=== PATIENT | female | born 1985 | race Two or more races ===

== ENCOUNTER → 2024-03-08 | Outpatient (CLI) | payer BC, SELFPAY ==
[2024-03-08 12:03] LABS: Collection Type, Urine Clean Catch
[2024-03-08 12:33] LABS: Bilirubin,Urine Negative (Negative); Blood,Urine Negative (Negative); Clarity,Urine Clear (Clear/Hazy); Color,Urine Yellow (Lt Yel-Yel); Culture Indicated,Urine Not Indicated; Glucose, Urine Negative (Negative); Ketones,Urine Negative (Negative); Leukocyte Esterase,Urine Negative (Negative); Nitrite,Urine Negative (Negative); Protein,Urine Trace (Neg - Trace); RBC,Urine 3 /hpf (0-3); Specific Gravity,Urine 1.031 (1.001-1.035); Squamous Epithelial Cell,Urine 5 /hpf (0-5); Urobilinogen,Urine Negative mg/dL (0.0-1.0); WBC,Urine 1 /hpf (0-5)
[2024-03-08 12:37] LABS: Glucose Estimated Average 97 mg/dL (80-131)
[2024-03-08 12:39] LABS: Basophils # (Auto) 0.1 Thou/mm3 (0.0-0.2); Basophils % (Auto) 1 % (0-2.5); Eosinophils # (Auto) 0.1 Thou/mm3 (0.0-0.5); Eosinophils % (Auto) 2 % (0-10); Hematocrit 40.9 % (36.0-46.0); Hemoglobin 14.4 g/dL (12.0-16.0); Immature Granulocytes % (Auto) 0 % (0-0); Immature Granulocytes Auto 0.01 Thou/mm3 (0.00-0.00); Lymphocytes # (Auto) 2.5 Thou/mm3 (1.0-4.8); Lymphocytes % (Auto) 37 % (10-50); Mean Corpuscular HGB Conc 35.2 g/dl (31.0-37.0); Mean Corpuscular Hemoglobin 31.9 pg (25.0-35.0); Mean Corpuscular Volume 91 fL (80-100); Monocytes # (Auto) 0.4 Thou/mm3 (0.0-0.8); Monocytes % (Auto) 6 % (0-12); Neutrophils # (Auto) 3.6 Thou/mm3 (1.8-7.7); Neutrophils % (Auto) 53 % (37-80); Nucleated Red Blood Cell % 0 /100 WBC (0); Parathyroid Hormone Intact 60.1 pg/ml (18.5-88.0); Platelet Count 284 Thou/mm3 (140-440); RDW Standard Deviation 45.4 fL (36.4-46.3); Red Blood Count 4.52 Miln/mm3 (4.00-5.20); White Blood Count 6.7 Thou/mm3 (3.6-11.0)
[2024-03-08 12:53] LABS: Alanine Aminotransferase 26 U/L (10-49); Albumin, Serum 5.2 gm/dL (3.5-5.0); Albumin/Globulin Ratio 2.1 (1.2-2.2); Alkaline Phosphatase 55 U/L (46-116); Anion Gap 10 (7-16); Aspartate Amino Transferase 21 U/L (0-34); BUN/Creatinine Ratio 18 Ratio (12-20); Bilirubin,Total 0.7 mg/dL (0.3-1.2); Blood Urea Nitrogen 14 mg/dL (9-23); Calcium 9.4 mg/dL (8.3-10.6); Calcium (Corrected) 9.4 mg/dL (8.5-10.1); Carbon Dioxide 25.1 mMol/L (20.0-31.0); Cardiac Risk Estimate 4.8 RATIO (3.7-5.6); Chloride 103 mMol/L (98-107); Cholesterol 263 mg/dL (132-200); Creatinine (Component) 0.8 mg/dL (0.6-1.3); Free T4 (Free Thyroxine) 0.98 ng/dL (0.89-1.76); Globulin 2.5 gm/dL (2.3-3.5); Glucose 87 mg/dL (74-106); HDL Cholesterol 55 mg/dL (40-60); LDL Cholesterol,Calculated 181 mg/dL (0-130); Osmolality,Calculated 275 (275-295); Potassium 4.1 mMol/L (3.4-5.1); Sodium 138 mMol/L (136-145); Thyroid Stimulating Hormone 50.02 uIU/mL (0.55-4.78); Total Protein 7.7 gm/dL (5.7-8.2); Triglycerides 135 mg/dL (30-150); eGFR > 60 See Note
[2024-03-08 12:55] LABS: Ferritin 44 ng/mL (7.3-270.7); Total Iron Binding Capacity 356 mcg/dL (250-425)
[2024-03-08 13:05] LABS: Iron 125 mcg/dL (50-170)
[2024-03-09 18:44] LABS: Folate > 24.00 ng/mL (>5.38); Vitamin B12 779 pg/mL (211-911)
[2024-03-14 06:38] LABS: Vitamin B1 (Thiamine)* 13 nmol/L (8-30); Vitamin B6, Plasma* 81.7 ng/mL (2.1-21.7)
[2024-03-18 06:37] LABS: Vitamin D,1,25 (OH)2,Total 33 pg/mL (18-72); Vitamin D2, 1,25 (OH)2 <8 pg/mL; Vitamin D3, 1,25 (OH)2 33 pg/mL
== END | disposition home or self-care (01) ==
LOC: COPL 10:57
PROVIDERS: PCP Registered Nurse; Referring Provider Surgery; Visit Provider Surgery
DX: Z00.00 Encounter for general adult medical examination without abnormal findings (principal); E03.9 Hypothyroidism, unspecified; Z98.84 Bariatric surgery status; E44.0 Moderate protein-calorie malnutrition; E56.9 Vitamin deficiency, unspecified; R53.82 Chronic fatigue, unspecified; R53.81 Other malaise
CPT/HCPCS: 36415; 80053; 80061; 81001; 82607; 82652; 82728; 82746; 83036; 83540; 83550; 83970; 84207; 84425; 84439; 84443; 85025

== ENCOUNTER → 2025-01-06 | Outpatient (CLI) | payer BC, SELFPAY ==
[2025-01-06 08:51] LABS: Free T4 (Free Thyroxine) 1.18 ng/dL (0.89-1.76); Thyroid Stimulating Hormone 16.39 uIU/mL (0.55-4.78)
== END | disposition home or self-care (01) ==
LOC: COPL 07:14
PROVIDERS: PCP Family Medicine; Referring Provider Nurse Practitioner Family; Visit Provider Nurse Practitioner Family
DX: E03.9 Hypothyroidism, unspecified (principal)
CPT/HCPCS: 36415; 84439; 84443

== ENCOUNTER 2025-01-07 16:36 | Emergency (ER) | payer BC, SELFPAY ==
[2025-01-07 17:19] VITALS: BP 118/78; PULSE 66; RESP 16; TEMP 36.9; O2SAT 99; BMI 36.5
--- NOTE | 2025-01-07 17:22 | XR_ITS ---
Examination: Complete OB ultrasound, less than 14 weeks, transabdominal Date and time of exam: January 07, 2025, 1744 hours INDICATIONS: Vaginal bleeding and cramping beginning 2 hours ago Technique: Obstetrical ultrasound images less than 14 weeks performed via transabdominal imaging Findings: A normal shaped single intrauterine gestation is present in the uterus. CRL 0.6 cm corresponds to 6 weeks 3 days gestational age Cardiac motion 122 bpm Right ovary 2.5 cm arterial flow Left lobe the obscured by bowel gas Ultrasonographic survey of visible and placental structures unremarkable. Amniotic fluid volume appears appropriate for this estimated gestational age. Impression: Viable intrauterine gestation 6 weeks 3 days.
--- NOTE | 2025-01-07 17:22 | PD.EDRME ---
Rapid Medical Screening Exam [facility] Arrival date/time: 01/07/25 16:36 39-year-old female with no known medical history presents to the emergency room with a chief complaint of vaginal bleeding. Patient is currently 6 weeks . Patient is a G3, P1 I have greeted and performed a focused initial assessment of this patient. A comprehensive ED assessment and evaluation of the patient, analysis of all test results, and completion of the medical decision making process will be conducted by additional ED providers. Chief Complaint: Vaginal Bleeding Time Seen by Provider: 01/07/25 17:06 Vital signs: Vital Signs Temperature 98.5 F 01/07/25 17:19 Pulse Rate 66 01/07/25 17:19 Respiratory Rate 16 01/07/25 17:19 Blood Pressure 118/78 01/07/25 17:19 Pulse Oximetry (%) 99 01/07/25 17:19 Oxygen Delivery Method Room Air 01/07/25 17:19 Vital signs reviewed by provider: Yes Exam: Soft nontender abdomen Clear bilateral lung sounds Clinical Impression: Threatened /spontaneous /vaginal bleeding/subchorionic hemorrhage
[2025-01-07 17:52] LABS: Basophils # (Auto) 0.1 Thou/mm3 (0.0-0.2); Basophils % (Auto) 1 % (0-2.5); Eosinophils # (Auto) 0.1 Thou/mm3 (0.0-0.5); Eosinophils % (Auto) 1 % (0-10); Hematocrit 38.4 % (36.0-46.0); Hemoglobin 13.3 g/dL (12.0-16.0); Immature Granulocytes Auto 0.03 Thou/mm3 (0.00-0.00); Lymphocytes # (Auto) 3.2 Thou/mm3 (1.0-4.8); Lymphocytes % (Auto) 35 % (10-50); Mean Corpuscular HGB Conc 34.6 g/dl (31.0-37.0); Mean Corpuscular Hemoglobin 32.5 pg (25.0-35.0); Mean Corpuscular Volume 94 fL (80-100); Monocytes # (Auto) 0.7 Thou/mm3 (0.0-0.8); Monocytes % (Auto) 8 % (0-12); Neutrophils # (Auto) 5.1 Thou/mm3 (1.8-7.7); Neutrophils % (Auto) 55 % (37-80); Nucleated Red Blood Cell # 0.00 Thou/mm3 (0.00-0.00); Nucleated Red Blood Cell % 0 /100 WBC (0); Platelet Count 247 Thou/mm3 (140-440); RDW Standard Deviation 47.4 fL (36.4-46.3); Red Blood Count 4.09 Miln/mm3 (4.00-5.20); White Blood Count 9.2 Thou/mm3 (3.6-11.0)
[2025-01-07 18:01] LABS: Collection Type, Urine Clean Catch
[2025-01-07 18:10] LABS: Amorphous Crystals,Urine Present (Absent); Bacteria,Urine Rare; Bilirubin,Urine Negative (Negative); Blood,Urine 3+ (Negative); Clarity,Urine Turbid (Clear/Hazy); Color,Urine Lt-Yellow (Lt Yel-Yel); Glucose, Urine Negative (Negative); Ketones,Urine Negative (Negative); Leukocyte Esterase,Urine Positive (Negative); Nitrite,Urine Negative (Negative); PH,Urine 6.0 (5.0-7.0); Protein,Urine Trace (Neg - Trace); RBC,Urine 31 /hpf (0-3); Specific Gravity,Urine 1.024 (1.001-1.035); Squamous Epithelial Cell,Urine 3 /hpf (0-5); Urobilinogen,Urine Negative mg/dL (0.0-1.0); WBC,Urine 9 /hpf (0-5)
[2025-01-07 18:12] LABS: Alanine Aminotransferase 13 U/L (10-49); Albumin, Serum 4.7 gm/dL (3.5-5.0); Albumin/Globulin Ratio 2.0 (1.2-2.2); Alkaline Phosphatase 58 U/L (46-116); Anion Gap 10 (7-16); Aspartate Amino Transferase 15 U/L (0-34); BUN/Creatinine Ratio 8 Ratio (12-20); Bilirubin,Total 0.3 mg/dL (0.3-1.2); Blood Urea Nitrogen < 5 mg/dL (9-23); Calcium 9.8 mg/dL (8.3-10.6); Calcium (Corrected) 9.8 mg/dL (8.5-10.1); Carbon Dioxide 23.3 mMol/L (20.0-31.0); Chloride 106 mMol/L (98-107); Creatinine (Component) 0.6 mg/dL (0.6-1.3); Estimated Creatinine Clearance 159.0 mL/min (>60); Globulin 2.3 gm/dL (2.3-3.5); Glucose 79 mg/dL (74-106); Osmolality,Calculated 273 (275-295); Potassium 3.8 mMol/L (3.4-5.1); Sodium 139 mMol/L (136-145); Total Protein 7.0 gm/dL (5.7-8.2); eGFR > 60 See Note
--- NOTE | 2025-01-07 22:35 | EDNOTE_ITS ---
ED OB Contraction Preg RMI/HPI General Chief complaint: Vaginal Bleeding Stated complaint: VAG BLEEDING, LOWER BACK PAIN Time Seen by Provider: 01/07/25 17:06 Arrival date/time: 01/07/25 16:36 RME / HPI RME / HPI Narrative: 01/07/25 16:36 39-year-old female with no known medical history presents to the emergency room with a chief complaint of vaginal bleeding. Patient is currently 6 weeks . Patient is a G3, P1 I have greeted and performed a focused initial assessment of this patient. A comprehensive ED assessment and evaluation of the patient, analysis of all test results, and completion of the medical decision making process will be conducted by additional ED providers. Dr. Ordoñez?s Main ED Evaluation: 39yo female who is ~6 weeks gestation presents to the ED for a chief complaint of vaginal bleeding x today at 1600. Patient denies passing any blood clots. Patient denies any abdominal cramping, N/V, fever, chills, or any other associated symptoms. Related Data Home Medications ?Medication ?Instructions ?Recorded ?Confirmed vitamins with calcium 1 tab PO QDAY 10/14/23 10/14/23 no.72-iron 27 mg-folic acid 1 mg tablet ( Plus (calcium carbonate)) Previous Rx's ?Medication ?Instructions ?Recorded hydrocodone 5 mg-acetaminophen 325 1 tab PO Q6H PRN pa in #20 tabs 10/15/23 mg tablet levothyroxine 125 mcg capsule 125 mcg PO QDAY #90 caps 10/17/23 Allergies Allergy/AdvReac Type Severity Reaction Status Date / Time amoxicillin Allergy Severe Rash Verified 10/14/23 23:39 NSAIDS (Non-Steroidal Allergy Intermediate Gastrointestinal Verified 10/15/23 08:02 Anti-Inflamma Upset Review of Systems Review of Systems Systems Reviewed: All systems reviewed, normal except as documented Past Medical History Past Medical History NEUROLOGIC: Positive Neurological Disorders and Migraine; Negative Transient Ischemic Attacks (TIA) or Seizures CARDIAC: Negative Cardiac Disorders or Congestive Heart Failure RESPIRATORY: Negative Chronic Obstructive Pulmonary Disease (COPD), Asthma or Sleep Apnea GASTROINTESTINAL: Positive Gastrointestinal Disorders and Obesity; Negative Hepatitis, Gall Bladder Disease or Gastroesophageal Reflux Disease GENITOURINARY: Negative Genitourinary Disorders or Renal Disease REPRODUCTIVE: Positive Previous Pregnancies (SAB X1); Negative Pelvic Inflammatory Disease MUSCULOSKELETAL: Negative Musculoskeletal Disorders ENDOCRINE: Positive Endocrine Disorders and Hypothyroidism; Negative Diabetes Mellitus Type 1 or Diabetes Mellitus Type 2 HEMATOLOGIC: Negative Blood Disorders or Sickle Cell Disease OTHER HISTORY: Positive Hospitalization and Chicken Pox; Negative Autoimmune Disease, Shingles, Blood Transfusions, Blood Transfusion Reaction, Anesthesia Reactions, Measles or Cancer Family History FAMILY HISTORY: Negative Family Psychiatric Problems, Family Respiratory Disorders, Family Cardiac Disorders, Family Gastrointestinal Problems, Family Cancer, Family Surgery or Family Anesthesia Reaction Surgical History SURGICAL: Positive Abdominal Surgery and Gastric Bypass Surgery (GATRIC SLEEVE); Negative Pacemaker Social History SMOKING STATUS: Former smoker SUBSTANCE USE: does not use ED Exam Narrative Physical exam: Generally patient is alert and in no obvious distress, heart regular rate and rhythm, lungs clear to auscultation equal bilaterally, abdomen soft bowel sounds present nondistended nontender, musculoskeletal exam showed no costovertebral angle tenderness Course Quality Measures none Orders Category Date Time Status US OB <= 14 weeks fetus Stat Exams 01/07/25 17:22 Completed ABO/RH Type Stat Lab 01/07/25 17:35 Completed Beta HCG,Quantitative Stat Lab 01/07/25 17:35 Completed CBC Stat Lab 01/07/25 17:35 Completed CMP [Comprehensive Metabolic Panel] Stat Lab 01/07/25 17:35 Completed UA [Urinalysis] Stat Lab 01/07/25 17:53 Completed Vital Signs Vital signs: Vital Signs Temperature 98.5 F 01/07/25 17:19 Pulse Rate 66 01/07/25 17:19 Respiratory Rate 16 01/07/25 17:19 Blood Pressure 118/78 01/07/25 17:19 Pulse Oximetry (%) 99 01/07/25 17:19 Oxygen Delivery Method Room Air 01/07/25 17:19 Vaginal Bleeding MDM Narrative MDM Narrative: Scribe Attestation: 01/07/25 - Argenis Denton am scribing for and in the presence of Dr. Ordoñez. Ultrasound showed a viable intrauterine of 6 weeks and 3 days with a heart rate of 122. Patient's Rh is positive. Patient is to have bedrest until bleeding stops for 24 hours. Pelvic rest until bleeding stops for 24 hours. Follow-up with your COMMUNICATIONS OFFICER physician. Return to ER as needed or if condition worsens. There is no evidence for urine infection. Patient is not anemic. Patient data External records reviewed:: [facility] previous records (Per chart review, patient was seen here on 08/06/23 for gastroenteritis.) Clinical information provided by:: patient Social determinants that could affect healthcare access:: none Patient has the following chronic illnesses:: none How is presenting disease/condition affected by chronic disease/condition?: no chronic disease Evaluation data The following diagnostics were reviewed and interpreted by me:: lab results and radiology exam(s) Lab and/or radiology exams considered but not ordered:: none Interpretation Summary: [place] [facility] Report Signed Patient: KAYE GONZALEZ Record#: [id number] Birthdate: 1985 Age/Sex: 39 / F Location: [facility] Attending Dr: Ordering Physician: Michele Hankins Date of Service: 01/07/25 Procedure(s): US OB <= 14 weeks fetus Accession Number(s): [id number] cc: Michele Hankins; Luca Aranda MD; Rolf Rowe MD~ Examination: Complete OB ultrasound, less than 14 weeks, transabdominal Date and time of exam: January 07, 2025, 1744 hours INDICATIONS: Vaginal bleeding and cramping beginning 2 hours ago Technique: Obstetrical ultrasound images less than 14 weeks performed via transabdominal imaging Findings: A normal shaped single intrauterine gestation is present in the uterus. CRL 0.6 cm corresponds to 6 weeks 3 days gestational age Cardiac motion 122 bpm Right ovary 2.5 cm arterial flow Left lobe the obscured by bowel gas Ultrasonographic survey of visible and placental structures unremarkable. Amniotic fluid volume appears appropriate for this estimated gestational age. Impression: Viable intrauterine gestation 6 weeks 3 days. Dictated By: Luca Aranda MD Signed By: <Electronically signed by Luca Aranda MD in OV> 01/07/25 1829 Medications / Prescriptions Medications or Prescriptions considered but not ordered:: none Medication administrations:: none Consultations Consultation(s) initiated? (list below): No Diagnosis Vaginal Bleeding Differential Diagnosis: other (See MDM) Most likely diagnosis given after review of the tests above:: see clinical impression below Admission Indicated Admission indicated?: not indicated Admission Request Was there a request for admission?: No Disposition Plan Disposition Plan: Discharge Discharge Attestation Discharge Attestation: The patient and all family members were given an opportunity to ask questions and understood the discharge instructions. Discharge instructions specifically effects, indications for sooner follow up or return to the emergency department, and the expected course of current diagnosis. Patient condition: Stable Discharge Plan Plan Patient Disposition: HOME (Self Care) Prescriptions/Referrals Prescriptions/Med Rec: No Action Plus (calcium carb) 27 mg iron- 1 mg tablet 1 tab PO QDAY Patient Comments: Take 1 tablet by mouth once a day hydrocodone-acetaminophen 5-325 mg tablet 1 tab PO Q6H MDD 4 PRN (Reason: pain) Qty: 20 0RF levothyroxine 125 mcg capsule 125 mcg PO QDAY Qty: 90 3RF Referrals: Rolf Rowe MD [Primary Care Provider, Family Practice] - In 1 week Problem List Clinical Impression: , threatened Patient/Caregiver Discharge Instructions Education Materials: ED Possible Miscarriage ... Additional Instructions: Bed rest and pelvic rest until bleeding stops for 24 hours. Tylenol for any pain. Follow-up with your COMMUNICATIONS OFFICER physician. Print Language: Greek Stand Alone Forms: Elyssa Award Info., Work/School Release, Patient Portal Info Letter
[2025-01-07 22:53] VITALS: BP 127/81; PULSE 58; RESP 18; TEMP 36.8; O2SAT 100
[2025-01-07 22:59] VITALS: RESP 14
== END 2025-01-07 23:00 | disposition home or self-care (01) ==
PROVIDERS: Nurse Practitioner Family; Emergency Provider Emergency Medicine; PCP Family Medicine
DX: O20.0 Threatened abortion (principal); Z3A.01 Less than 8 weeks gestation of pregnancy
CPT/HCPCS: 36415; 76801; 80053; 81001; 84702; 85025; 86900; 86901; 99283

== ENCOUNTER → 2025-01-14 | Outpatient (CLI) | payer BC, SELFPAY ==
[2025-01-14 10:15] LABS: HCG Titer if Positive Positive
== END | disposition home or self-care (01) ==
PROVIDERS: PCP Registered Nurse; Referring Provider Registered Nurse; Visit Provider Registered Nurse
DX: O26.851 Spotting complicating pregnancy, first trimester (principal)
CPT/HCPCS: 36415; 84702; 84703

== ENCOUNTER → 2025-02-03 | Outpatient (CLI) | payer BC, SELFPAY ==
--- NOTE | 2025-02-03 10:38 | XR_ITS ---
Examination: Complete OB ultrasound, less than 14 weeks, transabdominal Date and time of exam: February 03, 2025, 1049 hours INDICATIONS: Vaginal bleeding beginning 1 month ago Technique: Obstetrical ultrasound images less than 14 weeks performed via transabdominal imaging Findings: A normal shaped single intrauterine gestation is present in the uterus. CRL 3.8 cm corresponds to 10 weeks 5 days gestational age Cardiac motion 171 bpm Ultrasonographic survey of visible and placental structures unremarkable. Amniotic fluid volume appears appropriate for this estimated gestational age. Right ovary 3.2 cm arterial flow Left ovary 3.3 cm arterial flow IMPRESSION: Viable intrauterine gestation 10 weeks 5 days.
[2025-02-03 12:23] LABS: Free T4 (Free Thyroxine) 1.01 ng/dL (0.89-1.76); Thyroid Stimulating Hormone 5.99 uIU/mL (0.55-4.78)
[2025-02-03 12:36] LABS: HCG Titer if Positive Positive
[2025-02-03 13:53] LABS: Beta HCG,Quantitative 51282 mIU/mL (<5.0)
== END | disposition home or self-care (01) ==
PROVIDERS: PCP Family Medicine; Referring Provider Registered Nurse; Visit Provider Radiology Diagnostic Radiology
DX: O26.851 Spotting complicating pregnancy, first trimester (principal); Z3A.10 10 weeks gestation of pregnancy; E03.9 Hypothyroidism, unspecified
CPT/HCPCS: 36415; 76801; 84439; 84443; 84702; 84703